=== PATIENT | male | born 1990 | race Native Hawaiian/Other Pacific Islander ===

== ENCOUNTER 2017-01-19 09:51 | Emergency (ER) | payer OTHER ==
[~2017-01-19] VITALS: Ht 185.4 cm; Wt 104.3 kg
[2017-01-19 10:37] VITALS: BP 152/97
== END 2017-01-19 11:07 | disposition home or self-care (01) ==
LOC: ER 09:51
DX: S16.1XXA Strain of muscle, fascia and tendon at neck level, initial encounter (principal); F17.210 Nicotine dependence, cigarettes, uncomplicated; X58.XXXA Exposure to other specified factors, initial encounter; Y93.89 Activity, other specified; Y92.89 Other specified places as the place of occurrence of the external cause; Y99.8 Other external cause status
CPT/HCPCS: 72040

== ENCOUNTER 2020-01-14 17:58 | Emergency (ER) | payer OTHER ==
[~2020-01-14] VITALS: Ht 185.4 cm; Wt 106.6 kg
[2020-01-14 22:40] VITALS: BP 98/74
[2020-01-14] MEDS ORDERED: FLUORESCEIN SOD 1 MG TEST STRIP RIGHTEYE ONE (23:45)
[2020-01-15] MEDS ORDERED: TETANUS-DIPTH-ACEL PERTUSSIS 0.5ML SYR Tdap IM ONE
== END 2020-01-15 00:39 | disposition home or self-care (01) ==
LOC: ER 17:58
DX: T15.91XA Foreign body on external eye, part unspecified, right eye, initial encounter (principal); Y99.9 Unspecified external cause status
CPT/HCPCS: 65220; 65222; 90471; 90715